=== PATIENT | female | born 1995 | race Caucasian/White ===

== ENCOUNTER 2017-05-30 14:44 | Emergency (ER) | payer SELFPAY ==
[~2017-05-30] VITALS: Ht 167.6 cm; Wt 61.2 kg
[2017-05-30] MEDS ORDERED: BACTRIM DS TAB1 EACH PO (16:26)
--- NOTE | 2017-05-30 16:26 | ED SKIN/ALLERGY COMPLAINT ---
History of Present Illness General Chief Complaint: Skin Rash/ Abcess Stated Complaint: ?"INFECTION ON LEG FROM PLUCKING INGROWN HAIR" Source: patient Exam Limitations: no limitations Vital Signs & Intake/Output Vital Signs & Intake/Output ED Intake and Output 05/31 0000 05/30 1200 Intake Total 0 Output Total Balance 0 Intake, Oral 0 Patient 135 lb Weight Weight Reported by Patient Measurement Method Allergies Coded Allergies: No Known Allergies (05/30/17) Reconcile Medications Sulfamethoxazole/Trimethoprim (Bactrim Ds Tablet) 800 MG-160 MG TABLET 1 TAB PO BID cellulitis Sulfamethoxazole/Trimethoprim (Bactrim Ds Tablet) 800 MG-160 MG TABLET 1 TAB PO BID cellulitis Triage Note: PT TO ED FOR ABSCESS TO BACK OF R CALF. Triage Nurses Notes Reviewed? yes Onset: Abrupt Duration: day(s):, constant, continues in ED Timing: recent history Severity: moderate, severe Location: extremities No Modifying Factors: none : No Patient currently breastfeeds: No HPI: 21-year-old female comes into the emergency room with complaints of redness and pain to her right leg. Patient currently does not have active insurance. His been there for days. She denies any fever chills. She's had increased pain and increased swelling. She reported there was some drainage other day. Denies any vomiting. Denies any other associated symptoms (Vitaly Douglass) Past History Travel History Traveled to [place] past 21 day No Medical History Any Pertinent Medical History? see below for history Neurological: NONE EENT: NONE Cardiovascular: NONE Respiratory: NONE Gastrointestinal: NONE Hepatic: NONE Renal: NONE Musculoskeletal: NONE Psychiatric: NONE Endocrine: NONE Blood Disorders: NONE Cancer(s): NONE Surgical History Surgical History: non-contributory Psychosocial History What is your primary language Brazilian Tobacco Use: Never used ETOH Use: occasional use Illicit Drug Use: denies illicit drug use Family History Hx Contributory? No (Vitaly Douglass) Review of Systems Review of Systems Constitutional: Reports: no symptoms. EENTM: Reports: no symptoms. Respiratory: Reports: no symptoms. Cardiovascular: Reports: no symptoms. GI: Reports: no symptoms. Genitourinary: Reports: no symptoms. Musculoskeletal: Reports: no symptoms. Skin: Reports: see HPI. Neurological/Psychological: Reports: no symptoms. Hematologic/Endocrine: Reports: no symptoms. Immunologic/Allergic: Reports: no symptoms. All Other Systems: Reviewed and Negative (Vitaly Douglass) Physical Exam Physical Exam General Appearance: well developed/nourished, mild distress Head: atraumatic Eyes: Bilateral: normal appearance. Ears, Nose, Throat: normal ENT inspection, hearing grossly normal Neck: normal inspection Respiratory: no respiratory distress Back: normal inspection Extremities: normal inspection, normal range of motion, no edema Neurologic/Psych: awake, alert, oriented x 3, normal mood/affect Skin: intact Skin Problem Location: lower extremities (RIGHT LEG) Skin Problem Character: ERYTHEMATOUS PATCH BEHIND RIGHT LEG, INDURATION, WARM, NO PURULENT DRAINAGE Lymphatic: no anterior cervical noel (Vitaly Douglass) Progress Differential Diagnosis: abscess/cellulitis, allergic reaction, contact dermatitis, lyme disease Plan of Care: 05/30/2017 5:25:40 PM Patient clinically looks well. Patient in no apparent distress. Nontoxic- appearing. Patient started on oral antibiotics. No evidence of abscess the moment. Return if any other concerns. (Vitaly Douglass) Departure Departure Disposition: HOME OR SELF CARE Condition: Stable Clinical Impression Primary Impression: Cellulitis of right leg Referrals: Patient Has No Primary Care Dr (PCP/Family) Additional Instructions: Take Bactrim as prescribed. Follow-up for recheck in 3 days. Return if any other concerns worsening symptoms. Please go over all results of today's visit with your primary care doctor. Contact your primary care doctor to let them know you were here in the emergency room. There may be nonspecific findings which may not be related to your visit today here in the emergency room but may require further evaluation and chronic monitoring by your primary care doctor. If you had a laceration today the chance of foreign body always remains. You should follow-up with your primary care doctor for recheck in 3-5 days for a wound check. If you had an x-ray done there is a chance that a fracture could have been missed on initial read and you should follow-up with your primary care doctor for repeat x-rays if symptoms persist. If your blood pressure was elevated here in the emergency room please have rechecked by [facility] primary care doctor within the next 48. If you were prescribed a narcotic here in the emergency room or any type of controlled substances you're not allowed to drive while taking this medication or operate any type of heavy machinery. Narcotics can make you feel lightheaded dizziness nausea and can cause constipation. You may need to potato picker a stool softener. Thank you for choosing [facility] emergency room. Please return to the emergency room immediately if you have any other concerns worsening of symptoms. Departure Forms: Customer Survey General Discharge Information Prescriptions: Current Visit Scripts Sulfamethoxazole/Trimethoprim (Bactrim Ds Tablet) 1 TAB PO BID #14 TAB Sulfamethoxazole/Trimethoprim (Bactrim Ds Tablet) 1 TAB PO BID #14 TAB (Vitaly Douglass) PA/ENVIRONMENTAL SCIENCE PROFESSOR Co-Sign Statement Statement: ED Attending supervision documentation- [] I saw and evaluated the patient. I have also reviewed all the pertinent lab results and diagnostic results. I agree with the findings and the plan of care as documented in the PA's/ENVIRONMENTAL SCIENCE PROFESSOR's documentation. [X] I have reviewed the ED Record and agree with the PA's/ENVIRONMENTAL SCIENCE PROFESSOR's documentation. [] Additions or exceptions (if any) to the PAs/ENVIRONMENTAL SCIENCE PROFESSOR's note and plan are summarized below: [] (Alfred PALOMINO,Anitra)
== END 2017-05-30 16:33 ==
LOC: ERH 14:44
DX: L03.115 Cellulitis of right lower limb (principal)